=== PATIENT | male | born 1980 | race Hispanic/Latino ===

== ENCOUNTER 2018-06-15 05:02 | Emergency (ER) | payer BC ==
[2018-06-15 05:19] VITALS: RESP 20; TEMP 98.8
[2018-06-15] MEDS ORDERED: Sodium Chloride 0.9% 500 ML IV ONE ×2 (05:49→06:00)
[2018-06-15 06:23] LABS: BASO # 0.1 K/uL (0.0-0.2); BASO % 1.1 % (0.0-2.0); EOS # 0.2 K/uL (0.0-0.7); EOS % 3.9 % (0.0-4.0); HEMOGLOBIN 14.6 g/dL (12.0-18.0); LYMPH # 1.6 K/uL (1.0-4.3); LYMPH % 28.2 % (20.0-40.0); MEAN CELL VOLUME 86.9 fL (80.0-94.0); MEAN CORPUSCULAR HEMOGLOBIN 29.7 pg (27.0-31.0); MEAN CORPUSCULAR HGB CONC 34.2 g/dL (33.0-37.0); MEAN PLATELET VOLUME 8.2 fL (7.2-11.7); MONO # 0.5 K/uL (0.0-0.8); MONO % 9.4 % (0.0-10.0); NEUT # 3.2 K/uL (1.8-7.0); NEUT % 57.4 % (50.0-75.0); RBC 4.92 Mil/uL (4.40-5.90); RED CELL DISTRIBUTION WIDTH 12.8 % (11.5-14.5); WHITE BLOOD COUNT 5.5 K/uL (4.8-10.8)
[2018-06-15 06:24] LABS: SQUAMOUS EPITHIAL < 1 /hpf (0-5); URINE BILIRUBIN NEGATIVE (NEGATIVE); URINE BLOOD NEGATIVE (NEGATIVE); URINE CLARITY Hazy (Clear); URINE COLOR Yellow (YELLOW); URINE GLUCOSE (UA) NORMAL (Normal); URINE LEUKOCYTE ESTERASE NEG Leu/uL (Negative); URINE PROTEIN NEGATIVE (NEGATIVE)
--- NOTE | 2018-06-15 06:29 | C.PDOC ---
History Of Present Illness 37 year old male presents to the ED c/o left flank pain radiating to his upper abdomen associated with nausea. Patient reports his last bowel movement was yesterday and it was normal. Patient reports having intermittent similar pain in the past that usually self resolved. Patient did not take any medications at home. Patient denies fever, chills, vomit, diarrhea, rash, dysuria, hematuria. Time Seen by Provider: 06/15/18 05:33 Chief Complaint (Nursing): Back Pain History Per: Patient History/Exam Limitations: no limitations Onset/Duration Of Symptoms: Hrs Current Symptoms Are (Timing): Still Present Quality Of Discomfort: "Pain" Recent travel outside of the [place]: No Additional History Per: Patient Past Medical History Reviewed: Historical Data, Nursing Documentation, Vital Signs Vital Signs: Last Vital Signs Temp 98.8 F 06/15/18 05:11 Pulse 80 06/15/18 05:11 Resp 20 06/15/18 05:11 BP 155/99 H 06/15/18 05:11 Pulse Ox 99 06/15/18 05:11 - Medical History PMH: HTN Surgical History: No Surg Hx Family History: States: Unknown Family Hx - Social History Hx Alcohol Use: Yes Hx Substance Use: No Review Of Systems Constitutional: Negative for: Fever, Chills Cardiovascular: Negative for: Chest Pain Respiratory: Negative for: Shortness of Breath Gastrointestinal: Positive for: Abdominal Pain. Negative for: Nausea, Vomiting Genitourinary: Negative for: Dysuria, Hematuria Musculoskeletal: Positive for: Back Pain Skin: Negative for: Rash Neurological: Negative for: Weakness, Numbness, Headache Physical Exam - Physical Exam Appears: Non-toxic, No Acute Distress Skin: Normal Color, Warm, Dry Head: Atraumatic, Normacephalic Eye(s): bilateral: Normal Inspection Oral Mucosa: Moist Neck: Normal ROM, Supple Chest: Symmetrical Cardiovascular: Rhythm Regular Respiratory: Normal Breath Sounds, No Rales, No Rhonchi, No Wheezing Gastrointestinal/Abdominal: Soft, Tenderness (LUQ, mild epigastric), No Distention, No Guarding, No Rebound, No Hernia, Other (obese) Back: No CVA Tenderness Male Genital: Normal Inspection, No Testicular Tenderness, No Testicular Swel ling Extremity: Normal ROM, No Tenderness, No Swelling Neurological/Psych: Oriented x3, Normal Speech, Normal Cognition Gait: Steady ED Course And Treatment - Laboratory Results Result Diagrams: 06/15/18 06:18 06/15/18 06:18 O2 Sat by Pulse Oximetry: 99 (On RA) Pulse Ox Interpretation: Normal - CT Scan/US CT abd/pelvis Other Rad Studies (CT/US): Read By Radiologist, Radiology Report Reviewed CT/US Interpretation: CT SCAN OF THE ABDOMEN AND PELVIS WITHOUT ORAL OR IV CONTRAST. CLINICAL INDICATION: Left upper quadrant/left flank pain. TECHNIQUE: Axial and reformatted sagittal and coronal images of the abdomen pelvis obtained without IV contrast administration. COMPARISON: None. FINDINGS: The visualized lung bases are unremarkable. Enlarged fatty unenhanced liver. Normal gallbladder and extrahepatic biliary system. Normal unenhanced spleen. Normal pancreas. . Normal bilateral adrenal glands. Normal size of the right kidney. There is no right renal mass. There are no right renal calculi. There is no right hydronephrosis. Normal visualized right ureter. Normal size of the left kidney. There is no left renal mass. There are no left renal calculi. There is no left hydronephrosis. Normal visualized left ureter. Normal visualized stomach. Normal small intestine. Uncomplicated diverticulosis of the colon. The appendix is visualized and appears normal. There is no demonstrated peritoneal fluid. Normal abdominal aorta. Normal inferior vena cava. Normal retroperitoneum. Mild prostatomegaly. Prostatic calcifications. . Normal urinary bladder. There is no pelvic mass lesion or lymphadenopathy. There is no pelvic fluid. . Fat containing left inguinal hernia without incarceration. Normal osseous structures. IMPRESSION: Hepatomegaly with hepatic steatosis. Fat containing left inguinal hernia without incarceration. Uncomplicated colonic diverticulosis. . Electronically signed on Jun 15, 2018 6:50:15 AM EDT by: Jaspal Herrera M.D., Certified by ABR, MSK, Neuroradiology Progress Note: Plan: - CT abd/pelvis. - Labs. - Pepcid 20 mg IVP. - IV fluids. - Toradol 30 mg IVP. - Zofran 4 mg IVP. - UA. All labs and Abd /pelvis CT were discussed with the patient. Pt is now asymptomatic, laying comfortably in stretcher. Will prescribe antacids, and Pt advised to follow up with PMD . Return precautions discussed and understood by pt. Disposition Counseled Patient/Family Regarding: Diagnosis, Need For Followup - Disposition Referrals: [facility] [Outside] Disposition: HOME/ ROUTINE Disposition Time: 06:57 Condition: STABLE Additional Instructions: PLEASE FOLLOW UP WITH PMD CONTINUE PEPCID HIGH FIBER DIET RETURN TO ER IF WORSE Prescriptions: Famotidine [Pepcid] 20 mg PO DAILY #20 tab Instructions: Acid Reflux (Gastroesophageal Reflux Disease), Adult (DC), Acute Abdomen (Belly Pain), Adult (DC) Forms: [facility] (Bulgarian), Work Excuse - Clinical Impression Clinical Impression: Abdominal pain, Low back pain, Epigastric pain - 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 - Scribe Statement The provider has reviewed the documentation as recorded by the Scribe Lew Day All medical record entries made by the Scribe were at my direction and personally dictated by me. I have reviewed the chart and agree that the record accurately reflects my personal performance of the history, physical exam, medical decision making, and the department course for this patient. I have also personally directed, reviewed, and agree with the discharge instructions and disposition.
[2018-06-15 06:42] LABS: ALB/GLOB RATIO 1.7 (1.0-2.1); ALBUMIN 4.5 g/dL (3.5-5.0); ALT/SGPT 79 U/L (21-72); AST/SGOT 58 U/L (17-59); BLOOD UREA NITROGEN 16 mg/dL (9-20); CALCIUM 9.3 mg/dl (8.6-10.4); GFR NON-AFRICAN AMERICAN > 60; LIPASE 73 U/L (23-300)
[2018-06-15 07:04] VITALS: BP 156/85; PULSE 87
--- NOTE | 2018-06-15 08:36 | CT ---
Date of service: 06/15/2018 PROCEDURE: CT Abdomen and Pelvis without intravenous contrast HISTORY: COMPARISON: None. TECHNIQUE: CT scan of the abdomen and pelvis was performed without administration of intravenous contrast. Oral contrast was not administered. Coronal and sagittal reformatted images were obtained. Radiation dose: Total exam DLP = 1432.01 mGy-cm. This CT exam was performed using one or more of the following dose reduction techniques: Automated exposure control, adjustment of the mA and/or kV according to patient size, and/or use of iterative reconstruction technique. FINDINGS: LOWER THORAX: The visualized lungs are clear. LIVER: Mild hepatomegaly and fatty liver. No gross lesion or ductal dilatation. GALLBLADDER AND BILE DUCTS: Well distended. No calcified gallstones. No common bile duct dilatation. PANCREAS: Normal in size. No gross lesion or ductal dilatation. SPLEEN: Mild splenomegaly. ADRENALS: Normal in size. No discrete nodule. KIDNEYS AND URETERS: Both kidneys are normal in size. No hydronephrosis or nephrolithiasis. VASCULATURE: Normal in caliber. No aortic aneurysm. No aortic atherosclerotic calcification or mural plaque present. BOWEL: Evaluation of the bowel is limited in the absence of oral contrast. The small bowel loops are normal in caliber. The colon is normal in size. No bowel dilatation or wall thickening. No bowel obstruction. APPENDIX: Normal appendix. PERITONEUM: No free fluid. No free air. LYMPH NODES: No enlarged lymph nodes. BLADDER: Well distended and normal in appearance. REPRODUCTIVE: The prostate gland is normal in size. BONES: No acute fracture. Within normal limits for the patient's age. OTHER FINDINGS: Bilateral small fat containing inguinal hernias, larger on the left. Small fat containing umbilical hernia. IMPRESSION: No acute abdominal or pelvic abnormality. Mild hepatosplenomegaly and fatty liver. A preliminary report was provided by Lee Silber.
[2018-06-16 23:40] VITALS: O2SAT 99
== END 2018-06-15 07:14 | disposition home or self-care (01) ==
LOC: C.ER 05:02
DX: M54.5 Low back pain (principal); R10.13 Epigastric pain; I10 Essential (primary) hypertension
CPT/HCPCS: 74176; 80053; 81001; 83690; 85025; 96374; 96375; 99284; J1885; J2405; J7040

== ENCOUNTER 2018-07-25 08:53 | Day surgery (SDC) | payer BC ==
[2018-07-25 09:24] VITALS: BMI 36.9
[2018-07-25] MEDS ORDERED: Propofol 10 mg/ml Inj (20 ML) ONE ×2 (09:51→09:59)
[2018-07-25] MEDS ORDERED: Midazolam 2 MG/2 ML VIAL ONE (09:51)
[2018-07-25] MEDS ORDERED: Lactated Ringer's 500 ML IV ONE (09:53)
[2018-07-25 11:27] VITALS: TEMP 98; O2SAT 100
[2018-07-25 11:31] VITALS: BP 159/100
[2018-07-25 11:35] VITALS: PULSE 92; RESP 19
== END 2018-07-25 11:05 | disposition home or self-care (01) ==
LOC: C.ENDO 08:53
PROVIDERS: ATTEND Internal Medicine Gastroenterology
DX: K29.50 Unspecified chronic gastritis without bleeding (principal)
CPT/HCPCS: 43239; 88305; 88312; 88313; 88342; J2001; J2250; J2704; J3010; J7120